=== PATIENT | female | born 1965 | race Caucasian/White ===

== ENCOUNTER → 2024-09-15 08:04 | Outpatient (REF) | payer BC, SELFPAY | LOC: WDC 08:04 | PROVIDERS: ATTENDING PHYSICIAN Obstetrics & Gynecology Gynecology; FAMILY PHYSICIAN Family Medicine | DX: Z12.31 Encounter for screening mammogram for malignant neoplasm of breast (principal); Z85.3 Personal history of malignant neoplasm of breast | CPT/HCPCS: 77063; 77067 ==

== ENCOUNTER → 2024-11-23 10:42 | Outpatient (REF) | payer BC, SELFPAY | LOC: PAVMRI 10:42 | PROVIDERS: ATTENDING PHYSICIAN Orthopaedic Surgery; FAMILY PHYSICIAN Family Medicine | DX: M25.512 Pain in left shoulder (principal) | CPT/HCPCS: 73221 ==

== ENCOUNTER → 2025-02-16 10:00 | Outpatient (REF) | payer BC, SELFPAY | LOC: WDC 10:00 | PROVIDERS: ATTENDING PHYSICIAN Obstetrics & Gynecology Gynecology; FAMILY PHYSICIAN Family Medicine | DX: Z85.3 Personal history of malignant neoplasm of breast (principal); R92.2 Inconclusive mammogram | CPT/HCPCS: 76641 ==

== ENCOUNTER 2025-03-13 11:21 | Emergency (ER) | payer BC, SELFPAY ==
[2025-03-13 11:38] VITALS: BP 114/70
[2025-03-13 12:04] LABS: % Basophils 0.3 % (0-2); % Eosinophils 0.1 % (0-6); % Immature Granulocytes 0.4 % (0-0.5); % Lymphocytes 8.6 % (20.5-51.1); % Monocytes 8.7 % (1.7-9.3); % Neutrophils 81.9 % (42.2-75.2); Absolute Basophils 0.1 10^3/uL (0-0.2); Absolute Immature Granulocytes 0.1 10^3/uL (0-0.05); Absolute Lymphocytes 1.2 10^3/uL (1.2-3.4); Absolute Monocytes 1.3 10^3/uL (0.1-0.6); Absolute Neutrophils 11.8 10^3/uL (1.4-6.5); Hematocrit 42.3 % (37.0-47.0); Hemoglobin 14.1 g/dL (12.0-16.0); Mean Corp Hgb Conc. 33.3 g/dL (33.0-37.0); Mean Corpuscular Hgb 30.6 pg (27.0-31.0); Mean Corpuscular Volume 91.8 fL (81.0-99.0); Nucleated Red Blood Cells % 0 %; Platelet Count 284 10^3/uL (130-400); Red Blood Cell Count 4.61 10^6/uL (4.20-5.40); Red Cell Dist. Width 12.5 % (11.5-14.5); White Blood Cell Count 14.4 10^3/uL (4.8-10.8)
[2025-03-13 12:40] LABS: ALT (SGPT) 24 U/L (0-35); AST (SGOT) 23 U/L (14-36); Albumin 4.1 g/dl (3.5-5.0); Alkaline Phosphatase 88 U/L (38-126); Blood Urea Nitrogen 15 mg/dl (7-17); Calcium 9.8 mg/dl (8.4-10.2); Carbon Dioxide 31 mmol/L (22-30); Chloride 101 mmol/L (98-107); Glucose 98 mg/dl (70-99); Potassium 4.7 mmol/L (3.5-5.1); Sodium 138 mmol/L (135-145); Total Bilirubin 1.1 mg/dl (0.2-1.3); Total Protein 6.7 g/dl (6.3-8.2); eGFR > 60.00
[2025-03-13 14:16] LABS: Lipase 80 U/L (23-300)
[2025-03-13 14:34] VITALS: BMI 23.6
[2025-03-13 14:38] VITALS: BP 124/66
[2025-03-13 15:17] VITALS: BP 115/72
[2025-03-13 15:26] LABS: Urine Albumin 1+ (Neg - Trace); Urine Bilirubin Negative (Negative); Urine Character Clear (Clear); Urine Color Yellow; Urine Glucose Negative (Negative); Urine Ketone 3+ (Negative); Urine Leukocyte 2+ (Negative); Urine Nitrite Negative (Negative); Urine Occult Blood 1+ (Negative); Urine Specific Gravity 1.005 (<1.030); Urine Urobilinogen Negative (Neg - 1+)
[2025-03-13] MEDS: NSS 1000 IV (15:28)
[2025-03-13] MEDS: OMNIPAQUE 50 ML PO (15:30)
[2025-03-13] MEDS: DILAUDID 0.5 MG IV (15:31)
--- NOTE | 2025-03-13 15:57 | ED.GENMED ---
History of Present Illness
<Kimi Waddell PA-C - Last Filed: 03/16/25 23:28>
General
Chief Complaint: Abdominal Pain
Source: patient
Exam Limitations: none
Time Seen by Provider: 03/13/25 13:55
Nursing documentation reviewed up to this point in time: agreed with
History of Present Illness
History of Present Illness:
59 y/o F h/o epilepsy, HTN, GERD
here with RLQ pain the past 3 days, worse with walking/changing position; she feels the pain is intensifying
she had diarrhea last week for 4 days which resolved
no h/o diverticulitis, utis
pt has not had urinary sypmtoms, chills, nausea, vomiting
she has had lack of appetite
went to her PCP and sent in for eval and CT scan
she stil lhas her appendix
no h/o kidney stone
Past History
<KERRY Hawkins Last Filed: 03/16/25 23:28>
Past History
ED Past Medical History: Other (Pilonidal cyst, seizure disorder, bilateral ACL reconstructions)
Social History
Tobacco: Non-smoker
Alcohol: None
Family History
Family History: Negative Diabetes, Hypertension or CAD
Review of Systems
<Kimi Waddell PA-C - Last Filed: 03/16/25 23:28>
Review of Systems
Allergies reviewed?: Yes
All Other Systems: Not applicable
Phy Exam
<KERRY Hawkins Last Filed: 03/16/25 23:28>
Physical Exam
Physical Exam:
GENERAL: Alert , in no apparent distress
EYE: pupils equal and reactive
NECK: Supple
ENT: o/p clr, mmm.
CARDIAC: Regular rate and rhythm .
LUNGS: Clear breath sounds bilaterally, no acute respiratory distress, no wheezes/rales/rhonchi
ABDOMEN: Soft, MOD RLQ tenderness; no r/g, no cvat, normal bowel sounds
NEUROLOGICAL: Alert and oriented, no focal neuro deficits
SKIN: Warm and dry, skin intact.
MUSCULOSKELETAL: No edema, well perfused.
PSYCH: Normal and appropriate interaction.
Course
<Kimi Waddell PA-C - Last Filed: 03/16/25 23:28>
Orders/Labs/Results
Orders:
Orders
03/13/25 11:48
Complete Blood Count/With Diff Urgent
Comprehensive Metabolic Panel Urgent
Lipase Urgent
Comment: ADD ON TO MORNING LABS
03/13/25 13:21
Add On- LAB Urgent
Tests Added?: lipase
03/13/25 14:37
Urinalysis Reflex To Culture Urgent
Date Specimen was Collected: 03/13/25
Time Specimen was Collected: 14:35
Urine Microscopic Reflex Cult Urgent
Urine Culture Urgent
MURALI Source: U
Specimen Description:
Date Specimen was Collected: 03/13/25
Time Specimen was Collected: 14:35
03/13/25 15:02
0.9% Sodium Chloride 1000 ml [Nss] 1,000 ml IV BOLUS
HYDROmorphone [Dilaudid] 0.5 mg IV NOW STA
Iohexol [Omnipaque] See Protocol PO NOW STA
03/13/25 15:03
CT Abd/pel W Iv And Oral Contr Urgent
Comment:
Reason For Exam: RLQ pain, fever, tender;
03/13/25 19:04
Ketorolac [Toradol] 15 mg IV NOW STA
03/13/25 19:22
Amoxicillin 875 mg/Clav 125 mg [Augmentin 875 mg/125 mg] 1 tablet PO NOW STA
Abnormal Lab Results
03/13/25 03/13/25
11:48 14:37
WBC 14.4 H 10^3/uL
(4.8-10.8)
Abs Immat Gran (auto) 0.1 H 10^3/uL
(0-0.05)
Absolute Neuts (auto) 11.8 H 10^3/uL
(1.4-6.5)
Absolute Monos (auto) 1.3 H 10^3/uL
(0.1-0.6)
Neutrophils % 81.9 H %
(42.2-75.2)
Lymphocytes % 8.6 L %
(20.5-51.1)
Carbon Dioxide 31 H mmol/L
(22-30)
Urine Ketones 3+ A
(Negative)
Ur Occult Blood Reflex 1+ A
(Negative)
Leukocyte Esterase Rfl 2+ A
(Negative)
Urine RBC 3-6 A /HPF
(0-2)
Urine WBC (Reflex) 11-15 A /HPF
(0-5)
Urine Albumin (Reflex) 1+ A
(Neg - Trace)
03/13/25 11:48
03/13/25 11:48
Vital Signs
Initial and Last Documented VS:
Initial Vital Signs
Temp Pulse Resp BP Pulse Ox
36.5 C 94 18 114/70 99
03/13/25 11:38 03/13/25 11:38 03/13/25 11:38 03/13/25 11:38 03/13/25 11:38
Last Documented Vital Signs
Temp Pulse Resp BP Pulse Ox
36.8 C 89 18 126/80 97
03/13/25 15:17 03/13/25 19:15 03/13/25 19:15 03/13/25 19:15 03/13/25 19:15
<Gómez Deleon Jr., PA-C - Last Filed: 03/13/25 20:19>
Orders/Labs/Results
Orders:
Orders
03/13/25 11:48
Complete Blood Count/With Diff Urgent
Comprehensive Metabolic Panel Urgent
Lipase Urgent
Comment: ADD ON TO MORNING LABS
03/13/25 13:21
Add On- LAB Urgent
Tests Added?: lipase
03/13/25 14:37
Urinalysis Reflex To Culture Urgent
Date Specimen was Collected: 03/13/25
Time Specimen was Collected: 14:35
Urine Microscopic Reflex Cult Urgent
Urine Culture Urgent
MURALI Source: U
Specimen Description:
Date Specimen was Collected: 03/13/25
Time Specimen was Collected: 14:35
03/13/25 15:02
0.9% Sodium Chloride 1000 ml [Nss] 1,000 ml IV BOLUS
HYDROmorphone [Dilaudid] 0.5 mg IV NOW STA
Iohexol [Omnipaque] See Protocol PO NOW STA
03/13/25 15:03
CT Abd/pel W Iv And Oral Contr Urgent
Comment:
Reason For Exam: RLQ pain, fever, tender;
03/13/25 19:04
Ketorolac [Toradol] 15 mg IV NOW STA
03/13/25 19:22
Amoxicillin 875 mg/Clav 125 mg [Augmentin 875 mg/125 mg] 1 tablet PO NOW STA
Abnormal Lab Results
03/13/25 03/13/25
11:48 14:37
WBC 14.4 H 10^3/uL
(4.8-10.8)
Abs Immat Gran (auto) 0.1 H 10^3/uL
(0-0.05)
Absolute Neuts (auto) 11.8 H 10^3/uL
(1.4-6.5)
Absolute Monos (auto) 1.3 H 10^3/uL
(0.1-0.6)
Neutrophils % 81.9 H %
(42.2-75.2)
Lymphocytes % 8.6 L %
(20.5-51.1)
Carbon Dioxide 31 H mmol/L
(22-30)
Urine Ketones 3+ A
(Negative)
Ur Occult Blood Reflex 1+ A
(Negative)
Leukocyte Esterase Rfl 2+ A
(Negative)
Urine RBC 3-6 A /HPF
(0-2)
Urine WBC (Reflex) 11-15 A /HPF
(0-5)
Urine Albumin (Reflex) 1+ A
(Neg - Trace)
03/13/25 11:48
03/13/25 11:48
Vital Signs
Initial and Last Documented VS:
Initial Vital Signs
Temp Pulse Resp BP Pulse Ox
36.5 C 94 18 114/70 99
03/13/25 11:38 03/13/25 11:38 03/13/25 11:38 03/13/25 11:38 03/13/25 11:38
Last Documented Vital Signs
Temp Pulse Resp BP Pulse Ox
36.8 C 89 18 126/80 97
03/13/25 15:17 03/13/25 19:15 03/13/25 19:15 03/13/25 19:15 03/13/25 19:15
<Kimi Waddell PA-C - Last Filed: 03/16/25 23:28>
MDM/Problems Addressed
Differential Diagnosis Includes:
diverticulitis, UTI, pyelo, kidney stone, appendicitis
MDM/Problems Addressed:
59 y/o F with h/o
<Kimi Waddell PA-C - Last Filed: 03/16/25 23:28>
*Critical Care Note
Total Time (30-74mins, 75-104mins- exclusive of procedures): Not Applicable
<Gómez Deleon Jr., PA-C - Last Filed: 03/13/25 20:19>
Update Note
Update Note:
1900: ES///CT scan showing diverticulitis. Patient started on Augmentin otherwise stable for outpatient follow-up. Return precautions given. Patient does have a GI doctor to follow-up with.
ED Attending Note
<Kimi Waddell PA-C - Last Filed: 03/16/25 23:28>
-
Portions of this chart may have been created with voice recognition software.� Occasional wrong word or��sound alike� substitutions may have occurred due to the inherent limitations of voice recognition software.
Discharge Plan
Departure
Patient Disposition: Home (Routine Discharge)
Date of Disposition: 03/13/25
Time of Disposition: 19:21
Patient with high blood pressure during this ER visit?: No
Condition: Good
Covid-19: Not Applicable
Discharge Problem:
Diverticulitis
Instructions: Diverticulitis (DC)
Prescriptions:
New
amoxicillin-pot clavulanate 875-125 mg tablet
1 tab PO BID 7 Days Qty: 14 0RF
No Action
levetiracetam 500 MG tablet
1,000 mg PO BID
lamotrigine 100 MG tablet
200 mg PO DAILY
omeprazole 40 MG capsule,delayed release(DR/EC)
40 mg PO DAILY
Iron
65 mg PO DAILY
multivitamin 1 EACH tablet
1 ea PO DAILY
losartan 50 mg Tablet
50 mg PO DAILY
lamotrigine 150 mg Tablet
150 mg PO QPM
letrozole 2.5 mg Tablet
2.5 mg PO DAILY
zoledronic [id number] [Reclast] 5 mg/100 mL Piggyback
5 mg IV .EVERY 6 MONTHS
Rx Instructions:
Last infusion March 2023
acetaminophen [acetaminophen] 325 mg tablet
650 mg PO Q4HPRN PRN (Reason: mild pain) Qty: 1 0RF
ibuprofen 200 mg tablet
400 - 600 mg PO Q6HPRN PRN (Reason: moderate pain) Qty: 1 0RF
oxycodone 5 mg tablet
5 mg PO Q4HPRN PRN (Reason: breakthrough/severe pain) Qty: 10 0RF
Referrals:
Rosalinda Friend DO [Family Provider] -
Activity Restrictions/Additional Instructions:
You came to the emergency department today with concerns of abdominal pain. You are found to have diverticulitis. Please take the prescribed antibiotic and follow-up close with a primary care doctor. Return for any worsening, new or concerning
symptoms.
Interventions
Interventions:
*Risk Screen - Suicide Last Done: 03/13/25 11:40
*General Assessment Last Done: 03/13/25 11:40
*Neglect/Abuse Screening Last Done: 03/13/25 11:40
*ED- Fall Risk Assessment Last Done: 03/13/25 14:34
*ED COVID-19 Vaccine History Last Done: 03/13/25 11:40
*Nursing Disposition Last Done: 03/13/25 19:42
HR-Jgkgel-Fwpevqoovn Assessment Last Done: 03/13/25 14:34
Discharge Date and Time
Discharge Date/Time: 03/13/25 19:44
Print Language: HUNGARIAN
[2025-03-13 16:54] VITALS: BP 110/77
[2025-03-13 19:15] VITALS: BP 126/80
[2025-03-13] MEDS: TORADOL 15 MG IV (19:16)
[2025-03-13] MEDS: AUGMENTIN 875 MG/125 MG 1 TABLET PO (19:31)
== END 2025-03-13 19:44 | disposition home or self-care (01) ==
LOC: EMR 11:21
PROVIDERS: Emergency Medicine; Physician Assistant; EMERGENCY PHYSICIAN Emergency Medicine; FAMILY PHYSICIAN Family Medicine
DX: K57.92 Diverticulitis of intestine, part unspecified, without perforation or abscess without bleeding (principal); I10 Essential (primary) hypertension; K21.9 Gastro-esophageal reflux disease without esophagitis; G40.909 Epilepsy, unspecified, not intractable, without status epilepticus
CPT/HCPCS: 99284; 96374; 96375; 96361; 74177; 80053; 81003; 81015; 83690; 85025; 87086; Q9967

== ENCOUNTER 2025-06-15 06:11 | Day surgery (SDC) | payer BC, SELFPAY | END 2025-06-15 08:36 | disposition home or self-care (01) | LOC: GI 06:11 | PROVIDERS: ATTENDING PHYSICIAN Internal Medicine Gastroenterology | DX: Z12.11 Encounter for screening for malignant neoplasm of colon (principal); K57.30 Diverticulosis of large intestine without perforation or abscess without bleeding; K64.8 Other hemorrhoids; D12.3 Benign neoplasm of transverse colon; D12.4 Benign neoplasm of descending colon; Z86.0100 Personal history of colon polyps, unspecified | CPT/HCPCS: 45385; 45380; 88305 ==

== ENCOUNTER → 2025-09-18 08:16 | Outpatient (REF) | payer BC, SELFPAY | LOC: WDC 08:16 | PROVIDERS: ATTENDING PHYSICIAN Obstetrics & Gynecology Gynecology; FAMILY PHYSICIAN Family Medicine | DX: Z12.31 Encounter for screening mammogram for malignant neoplasm of breast (principal) | CPT/HCPCS: 77063; 77067 ==

== ENCOUNTER → 2025-09-20 07:00 | Outpatient (REF) | payer BC, SELFPAY | LOC: HWRAD 07:00 | PROVIDERS: ATTENDING PHYSICIAN Internal Medicine; FAMILY PHYSICIAN Family Medicine | DX: M81.0 Age-related osteoporosis without current pathological fracture (principal) | CPT/HCPCS: 77080 ==